=== PATIENT | male | born 1990 | race American Indian/Alaskan Native ===

== ENCOUNTER 2021-09-10 19:58 | Observation (INO) | payer SELFPAY ==
--- NOTE | 2021-09-10 21:31 | Emergency Department Report ---
ED General Adult HPI - General Chief complaint: Overdose Stated complaint: OVERDOSE Time Seen by Provider: 09/10/21 21:02 Source: patient, EMS Mode of arrival: Stretcher Limitations: No Limitations - History of Present Illness Initial comments: patient presents 2/2 being found unresponsive @ a alliance party in an apartment. Per EMS, patient got 2 doses of narcan, after which he woke up. Patient states he is unsure what he ingested at the alliance party. Denies SÁNCHEZ, dizziness, numbness, weakness, CP, SOB, palpitations, abd pain, back pain, pain in his extremities. - Related Data Allergies Allergy/AdvReac Type Severity Reaction Status Date / Time No Known Allergies Allergy Unverified 09/10/21 20:16 ED Review of Systems ROS: Stated complaint: OVERDOSE Other details as noted in HPI Comment: All other systems reviewed and negative Constitutional: denies: chills, fever ED Past Medical Hx - Past Medical History Previous Medical History?: No - Surgical History Past Surgical History?: No - Social History Smoking Status: Never Smoker Substance Use Type: None ED Physical Exam - General Limitations: No Limitations General appearance: alert, in no apparent distress - Head Head exam: Present: normocephalic, other (superifical abrasions in occiput) - Eye Eye exam: Present: PERRL, EOMI - ENT ENT exam: Present: mucous membranes moist, other (airway patent) - Neck Neck exam: Present: other (painless full ROM; non tender to palpation; unable to clear by NEXUS criteria 2/2 AMS) - Respiratory Respiratory exam: Present: other (good air entry, nml I:E, CTAB, no use of MURRAY) - Cardiovascular Cardiovascular Exam: Present: regular rate. Absent: rubs, gallop - GI/Abdominal GI/Abdominal exam: Present: soft, normal bowel sounds. Absent: distended, tenderness, guarding, rebound - Extremities Exam Extremities exam: Present: other (painless full ROM without defomrity, edema, ecchymosis or tenderness in all extremities; pelvis stable and non tender) - Back Exam Back exam: Present: other (no step offs). Absent: vertebral tenderness - Neurological Exam Neurological exam: Present: alert, oriented X3, CN II-XII intact, other (GCS 15/15 ([id number])). Absent: motor sensory deficit - Skin Skin exam: Present: other (see head) ED Course Vital Signs 09/10/21 09/10/21 20:11 21:17 Temperature 98 F Pulse Rate 84 Respiratory 18 Rate Blood Pressure 131/89 O2 Sat by Pulse 100 100 Oximetry ED Medical Decision Making - Lab Data Result diagrams: 09/10/21 21:55 09/10/21 21:55 Laboratory Tests 09/10/21 09/10/21 09/10/21 21:29 21:29 21:55 WBC 7.5 RBC 4.74 Hgb 14.5 Hct 44.3 MCV 94 MCH 31 MCHC 33 RDW 13.4 Plt Count 217 Lymph % (Auto) 26.7 [place] % (Auto) 9.6 H Eos % (Auto) 0.4 Baso % (Auto) 0.4 Lymph # (Auto) 2.0 [place] # (Auto) 0.7 Eos # (Auto) 0.0 Baso # (Auto) 0.0 Seg Neutrophils % 62.9 Seg Neutrophils # 4.8 Sodium Potassium Chloride Carbon Dioxide Anion Gap BUN Creatinine Estimated GFR BUN/Creatinine Ratio Glucose Calcium Total Bilirubin AST ALT Alkaline Phosphatase Troponin T Total Protein Albumin Albumin/Globulin Ratio Urine Color Straw Urine Turbidity Clear Urine pH 6.0 Ur Specific [place] 1.004 Urine Protein 30 mg/dl Urine Glucose (UA) Neg Urine Ketones Neg Urine Blood Sm Urine Nitrite Neg Urine Bilirubin Neg Urine Urobilinogen < 2.0 Ur Leukocyte Esterase Neg Urine WBC (Auto) 1.0 Urine RBC (Auto) < 1.0 Urine Bacteria (Auto) 1+ Salicylates Urine Opiates Screen Negative Urine Methadone Screen Negative Acetaminophen Ur Barbiturates Screen Negative Ur Phencyclidine Scrn Negative Ur Amphetamines Screen Negative U Benzodiazepines Scrn Negative Urine Cocaine Screen Negative U Marijuana (THC) Screen Positive Drugs of Abuse Note Disclamer Plasma/Serum Alcohol 09/10/21 09/10/21 09/10/21 21:55 21:55 21:55 WBC RBC Hgb Hct MCV MCH MCHC RDW Plt Count Lymph % (Auto) [place] % (Auto) Eos % (Auto) Baso % (Auto) Lymph # (Auto) [place] # (Auto) Eos # (Auto) Baso # (Auto) Seg Neutrophils % Seg Neutrophils # Sodium 138 Potassium 3.9 Chloride 99.0 Carbon Dioxide 22 Anion Gap 21 BUN 13 Creatinine 1.0 Estimated GFR > 60 BUN/Creatinine Ratio 13 Glucose 80 Calcium 8.9 Total Bilirubin 0.40 AST 85 H ALT 70 H Alkaline Phosphatase 49 Troponin T < 0.010 Total Protein 7.4 Albumin 4.8 Albumin/Globulin Ratio 1.8 Urine Color Urine Turbidity Urine pH Ur Specific [place] Urine Protein Urine Glucose (UA) Urine Ketones Urine Blood Urine Nitrite Urine Bilirubin Urine Urobilinogen Ur Leukocyte Esterase Urine WBC (Auto) Urine RBC (Auto) Urine Bacteria (Auto) Salicylates < 0.3 L Urine Opiates Screen Urine Methadone Screen Acetaminophen 5.0 L Ur Barbiturates Screen Ur Phencyclidine Scrn Ur Amphetamines Screen U Benzodiazepines Scrn Urine Cocaine Screen U Marijuana (THC) Screen Drugs of Abuse Note Plasma/Serum Alcohol 09/10/21 21:55 WBC RBC Hgb Hct MCV MCH MCHC RDW Plt Count Lymph % (Auto) [place] % (Auto) Eos % (Auto) Baso % (Auto) Lymph # (Auto) [place] # (Auto) Eos # (Auto) Baso # (Auto) Seg Neutrophils % Seg Neutrophils # Sodium Potassium Chloride Carbon Dioxide Anion Gap BUN Creatinine Estimated GFR BUN/Creatinine Ratio Glucose Calcium Total Bilirubin AST ALT Alkaline Phosphatase Troponin T Total Protein Albumin Albumin/Globulin Ratio Urine Color Urine Turbidity Urine pH Ur Specific [place] Urine Protein Urine Glucose (UA) Urine Ketones Urine Blood Urine Nitrite Urine Bilirubin Urine Urobilinogen Ur Leukocyte Esterase Urine WBC (Auto) Urine RBC (Auto) Urine Bacteria (Auto) Salicylates Urine Opiates Screen Urine Methadone Screen Acetaminophen Ur Barbiturates Screen Ur Phencyclidine Scrn Ur Amphetamines Screen U Benzodiazepines Scrn Urine Cocaine Screen U Marijuana (THC) Screen Drugs of Abuse Note Plasma/Serum Alcohol 0.05 EKG: HR 66, SR, nml intervals, minimal (< 1 mm) J point elevations in II, III, aVF without reciprocal ST depressions; likely benign early repolarization; patient without chest pain - Medical Decision Making poison control consulted. they recommend repeating CMP 4 hours after initial one, fluid hydration and obs x 12 hours minimum. They will follow Critical care attestation.: If time is entered above; I have spent that time in minutes in the direct care of this critically ill patient, excluding procedure time. ED Disposition Clinical Impression: Accidental drug overdose Qualifiers: Encounter type: initial encounter Qualified Code(s): T50.901A - Poisoning by unspecified drugs, medicaments and biological substances, accidental (unintentional), initial encounter Disposition: ADMITTED INPATIENT Is pt being admited?: Yes Does the pt Need Aspirin: No Condition: Stable Time of Disposition: 23:55 (Patient admitted to Dr. Gayle. Sign out was gvien by me to the admitting physician)
--- NOTE | 2021-09-10 21:47 | XRay Report ---
XR chest 1V ap INDICATION / CLINICAL INFORMATION: Loss of consciousness. COMPARISON: None available. FINDINGS: SUPPORT DEVICES: None. HEART /PULMONARY VASCULATURE: No significant abnormality. LUNGS / PLEURA: No significant pulmonary or pleural abnormality. No pneumothorax. IMPRESSION: 1. No acute findings. Signer Name: Alo Ortiz MD Signed: 09/10/2021 9:43 PM Workstation Name: [id number]
[2021-09-10 21:50] LABS: Amphetamine Screen,Urine Negative; Benzodiazepines Screen,Urine Negative; Cocaine Screen,Urine Negative; Methadone Screen,Urine Negative; Opiate Screen,Urine Negative
--- NOTE | 2021-09-10 21:58 | Cat Scan Report ---
CT head/brain wo con, CT cervical spine wo con INDICATION: loss of consciousness. TECHNIQUE: CT head and cervical spine without contrast. All CT scans at this location are performed u sing CT dose reduction for ALARA by means of automated exposure control. COMPARISON: None. FINDINGS: HEAD: BRAIN PARENCHYMA: No acute intracranial hemorrhage. No evidence of recent infarct. No mass effect or midline shift. VENTRICULAR SYSTEM/EXTRA-AXIAL SPACES: Ventricles are normal for age. No extra-axial fluid collection . ORBITS: Normal as visualized. SKELETAL SYSTEM/SOFT TISSUES: Normal bones and soft tissues. PARANASAL SINUSES/MASTOID AIR CELLS: No significant abnormality. CERVICAL: Alignment: Normal. No acute subluxation. Geographic Bone Lesion: None present. Fracture: No acute fracture. Degenerative Changes: Mild multilevel degenerative changes are present. Epidural Hematoma: Not present. Prevertebral / Paraspinal Soft Tissues: Unremarkable. IMPRESSION: 1. No acute intracranial abnormality. 2. No acute abnormality of the cervical spine. Signer Name: Alo Ortiz MD Signed: 09/10/2021 9:54 PM Workstation Name: [id number]
[2021-09-10 22:02] LABS: Bacteria,Urine 1+ /HPF (Negative); Bilirubin,Urine NEG (Negative); Blood,Urine SM (Negative); Color,Urine Straw (Yellow); RBC,Urine < 1.0 /HPF (0.0-6.0); Urobilinogen,Urine < 2.0 mg/dL (<2.0)
[2021-09-10 22:03] LABS: Cannabinoid Screen,Urine Positive
[2021-09-10] MEDS: TETANUS,DIPH,PERTUSS(ACELL) VACCINE 0.5 ML SYRINGE IM ONE (22:11)
[2021-09-10 22:24] LABS: Basophils % (Auto) 0.4 % (0.0-1.8); Eosinophils % (Auto) 0.4 % (0.0-4.3); Hematocrit 44.3 % (35.5-45.6); Hemoglobin 14.5 gm/dl (11.8-15.2); Lymphocytes % (Auto) 26.7 % (13.4-35.0); Mean Corpuscular HGB Conc 33 % (32-34); Mean Corpuscular Volume 94 fl (84-94); Monocytes # (Auto) 0.7 K/mm3 (0.0-0.8); Monocytes % (Auto) 9.6 % (0.0-7.3); Platelet Count 217 K/mm3 (140-440); Red Blood Count 4.74 M/mm3 (3.65-5.03); Red Cell Distribution Width 13.4 % (13.2-15.2)
[2021-09-10 22:49] LABS: Alanine Aminotransferase 70 units/L (7-56); Albumin 4.8 g/dL (3.9-5); BUN/Creatinine Ratio 13; Blood Urea Nitrogen 13 mg/dL (9-20); Calcium 8.9 mg/dL (8.4-10.2); Hemolysis Index 9
[2021-09-11] MEDS: SODIUM CHLORIDE 0.9% 1000 ML 1,000 ML IV ONE ×2 (00:37→07:12)
[2021-09-11 00:42] LABS: Alanine Aminotransferase 64 units/L (7-56); Albumin 4.7 g/dL (3.9-5); BUN/Creatinine Ratio 14; Blood Urea Nitrogen 14 mg/dL (9-20); Calcium 8.8 mg/dL (8.4-10.2); Hemolysis Index 4
[2021-09-11] MEDS ORDERED: ALBUTEROL 2.5 MG/3 ML NEBU IH PRN (02:06)
--- NOTE | 2021-09-11 02:13 | History and Physical Report ---
History of Present Illness Date of examination: 09/11/21 Date of admission: 09/11/21 Chief complaint: Drug overdose Unresponsiveness History of present illness: 31 years old male with history of marijuana abuse was brought to the hospital because of patient being found unresponsive @ a green party in an apartment. Per EMS, patient got 2 doses of narcan, after which he woke up. Patient states he is unsure what he ingested at the green party. Denies SÁNCHEZ, dizziness, numbness, weakness, CP, SOB, palpitations, abd pain, back pain, pain in his extremities. In the emergency room patient urine drug screen is positive for marijuana. We are going to admit the patient, poison control consulted. they recommend repeating CMP 4 hours after initial one, fluid hydration and obs x 12 hours minimum. Past History Past Medical History: No medical history Past Surgical History: No surgical history Social history: other (Marijuana abuse) Family history: no significant family history Medications and Allergies Allergies Allergy/AdvReac Type Severity Reaction Status Date / Time No Known Allergies Allergy Unverified 09/10/21 20:16 Review of Systems All systems: negative Constitutional: fatigue, other (Unresponsiveness) Exam - Constitutional Vitals: Temp Pulse Resp BP Pulse Ox 98 F 84 18 131/89 100 09/10/21 20:11 09/10/21 20:11 09/10/21 20:11 09/10/21 20:11 09/10/21 21:17 General appearance: Present: no acute distress, well-nourished - EENT Eyes: Present: PERRL ENT: hearing intact, clear oral mucosa - Neck Neck: Present: supple, normal ROM - Respiratory Respiratory effort: normal Respiratory: bilateral: CTA - Cardiovascular Heart Sounds: Present: S1 & S2. Absent: rub, click - Extremities Extremities: pulses symmetrical, No edema Peripheral Pulses: within normal limits - Abdominal General gastrointestinal: Present: soft, non-tender, non-distended, normal bowel sounds Male genitourinary: Present: normal - Integumentary Integumentary: Present: clear, warm, dry - Musculoskeletal Musculoskeletal: gait normal, strength equal bilaterally - Psychiatric Psychiatric: appropriate mood/affect, intact judgment & insight - Neurologic Neurologic: CNII-XII intact, moves all extremities HEART Score - HEART Score Troponin: Troponin T < 0.010 ng/mL (0.00-0.029) 09/10/21 21:55 Results - Labs CBC & Chem 7: 09/10/21 21:55 09/11/21 00:09 Labs: Laboratory Last Values WBC 7.5 K/mm3 (4.5-11.0) 09/10/21 21:55 RBC 4.74 M/mm3 (3.65-5.03) 09/10/21 21:55 Hgb 14.5 gm/dl (11.8-15.2) 09/10/21 21:55 Hct 44.3 % (35.5-45.6) 09/10/21 21:55 MCV 94 fl (84-94) 09/10/21 21:55 MCH 31 pg (28-32) 09/10/21 21:55 MCHC 33 % (32-34) 09/10/21 21:55 RDW 13.4 % (13.2-15.2) 09/10/21 21:55 Plt Count 217 K/mm3 (140-440) 09/10/21 21:55 Lymph % (Auto) 26.7 % (13.4-35.0) 09/10/21 21:55 [place] % (Auto) 9.6 % (0.0-7.3) H 09/10/21 21:55 Eos % (Auto) 0.4 % (0.0-4.3) 09/10/21 21:55 Baso % (Auto) 0.4 % (0.0-1.8) 09/10/21 21:55 Lymph # (Auto) 2.0 K/mm3 (1.2-5.4) 09/10/21 21:55 [place] # (Auto) 0.7 K/mm3 (0.0-0.8) 09/10/21 21:55 Eos # (Auto) 0.0 K/mm3 (0.0-0.4) 09/10/21 21:55 Baso # (Auto) 0.0 K/mm3 (0.0-0.1) 09/10/21 21:55 Seg Neutrophils % 62.9 % (40.0-70.0) 09/10/21 21:55 Seg Neutrophils # 4.8 K/mm3 (1.8-7.7) 09/10/21 21:55 Sodium 137 mmol/L (137-145) 09/11/21 00:09 Potassium 4.4 mmol/L (3.6-5.0) 09/11/21 00:09 Chloride 99.1 mmol/L (98-107) 09/11/21 00:09 Carbon Dioxide 23 mmol/L (22-30) 09/11/21 00:09 Anion Gap 19 mmol/L 09/11/21 00:09 BUN 14 mg/dL (9-20) 09/11/21 00:09 Creatinine 1.0 mg/dL (0.8-1.3) 09/11/21 00:09 Estimated GFR > 60 ml/min 09/11/21 00:09 BUN/Creatinine Ratio 14 % 09/11/21 00:09 Glucose 81 mg/dL (75-100) 09/11/21 00:09 Calcium 8.8 mg/dL (8.4-10.2) 09/11/21 00:09 Total Bilirubin 0.30 mg/dL (0.1-1.2) 09/11/21 00:09 AST 75 units/L (5-40) H 09/11/21 00:09 ALT 64 units/L (7-56) H 09/11/21 00:09 Alkaline Phosphatase 48 units/L (35-129) 09/11/21 00:09 Troponin T < 0.010 ng/mL (0.00-0.029) 09/10/21 21:55 Total Protein 7.3 g/dL (6.3-8.2) 09/11/21 00:09 Albumin 4.7 g/dL (3.9-5) 09/11/21 00:09 Albumin/Globulin Ratio 1.8 % 09/11/21 00:09 Urine Color Straw (Yellow) 09/10/21 21:29 Urine Turbidity Clear (Clear) 09/10/21 21: Urine pH 6.0 (5.0-7.0) 09/10/21 21:29 Ur Specific [place] 1.004 (1.003-1.030) 09/10/21 21: Urine Protein 30 mg/dl mg/dL (Negative) 09/10/21 21:29 Urine Glucose (UA) Neg mg/dL (Negative) 09/10/21 21: Urine Ketones Neg mg/dL (Negative) 09/10/21 21:29 Urine Blood Sm (Negative) 09/10/21 21:29 Urine Nitrite Neg (Negative) 09/10/21 21: Urine Bilirubin Neg (Negative) 09/10/21 21: Urine Urobilinogen < 2.0 mg/dL (<2.0) 09/10/21 21:29 Ur Leukocyte Esterase Neg (Negative) 09/10/21 21: Urine WBC (Auto) 1.0 /HPF (0.0-6.0) 09/10/21 21: Urine RBC (Auto) < 1.0 /HPF (0.0-6.0) 09/10/21 21: Urine Bacteria (Auto) 1+ /HPF (Negative) 09/10/21: Salicylates < 0.3 mg/dL (2.8-20.0) L 09/10/21 21:55 Urine Opiates Screen Negative 09/10/21 21: Urine Methadone Screen Negative 09/10/21: Acetaminophen 5.0 ug/mL (10.0-30.0) L 09/10/21 21:55 Ur Barbiturates Screen Negative 09/10/21 21: Ur Phencyclidine Scrn Negative 09/10/21 21:29 Ur Amphetamines Screen Negative 09/10/21 21: U Benzodiazepines Scrn Negative 09/10/21 21: Urine Cocaine Screen Negative 09/10/21 21: U Marijuana (THC) Screen Positive 09/10/21 21: Drugs of Abuse Note Disclamer 09/10/21: Plasma/Serum Alcohol 0.05 % (0-0.07) 09/10/21 21:55 - Imaging and Cardiology Chest x-ray: report reviewed CT Scan - head: report reviewed Assessment and Plan VTE prophylaxis?: Mechanical Plan of care discussed with patient/family: Yes - Patient Problems (1) Drug overdose Current Visit: Yes Status: Acute Plan to address problem: Admit the patient to the medical floor telemetry. n.p.o. D5 half-normal saline at the rate of 100 cc/h. Oxygen via nasal cannula 3 L/min. DuoNeb by nebulizer every 4 hours. Albuterol via nebulizer every 4 hours as needed. We will recheck the CMP and we will monitor the patient for total 12 hours. If needed reconsult psych for evaluation (2) Marijuana abuse Current Visit: Yes Status: Acute Plan to address problem: We counseled the patient regarding quit taking marijuana (3) DVT prophylaxis Current Visit: Yes Status: Acute Plan to address problem: SCD for DVT prophylaxis. Pepcid 20 mg IV every 12 hours for GI prophylaxis. Patient is a full code
[2021-09-11] MEDS ORDERED: HYDROmorphone 1 MG/1 ML INJ IV PRN (02:30)
[2021-09-11] MEDS ORDERED: ACETAMINOPHEN 325 MG TAB PO PRN (02:30)
[2021-09-11] MEDS ORDERED: MORPHINE 2 MG/1 ML INJ IV PRN (02:30)
[2021-09-11] MEDS ORDERED: ONDANSETRON 4 MG/2 ML INJ IV PRN (02:30)
[2021-09-11] MEDS ORDERED: D5W/0.45% NACL 1,000 ML IV SCH (03:00)
[2021-09-11] MEDS: TETANUS,DIPH,PERTUSS(ACELL) VACCINE 0.5 ML SYRINGE IM ONE (07:12)
[2021-09-11] MEDS ORDERED: IPRATROPIUM/ALBUTEROL SULFATE 3 ML AMPUL.NEB IH SCH (08:00)
--- NOTE | 2021-09-11 08:22 | Discharge Summary ---
Providers - Providers Date of Admission: 09/11/21 02:08 Attending physician: KIMANI LIU MD Primary care physician: NOEMI CHILDERS Hospitalization Reason for admission: overdose Condition: Stable Hospital course: History of present illness: 31 years old male with history of marijuana abuse was brought to the hospital because of patient being found unresponsive @ a alliance party in an apartment. Per EMS, patient got 2 doses of narcan, after which he woke up. Patient states he is unsure what he ingested at the alliance party. Denies SÁNCHEZ, dizziness, numbness, weakness, CP, SOB, palpitations, abd pain, back pain, pain in his extremities. In the emergency room patient urine drug screen is positive for marijuana. We are going to admit the patient, poison control consulted. they recommend repeating CMP 4 hours after initial one, fluid hydration and obs x 12 hours minimum. Hospital Course: 09/11: Admitted for THC and fentanyl overdose. Patient has now returned to his baseline. Poison control recommendations noted, reviewed lab did not note any significant abnormalities. Administered substance abuse counseling. Will discharge home today Assessment and Plan: #Drug overdose Current Visit: Yes Status: Acute Plan to address problem: Admit the patient to the medical floor telemetry. n.p.o. D5 half-normal saline at the rate of 100 cc/h. Oxygen via nasal cannula 3 L/min. DuoNeb by nebulizer every 4 hours. Albuterol via nebulizer every 4 hours as needed. We will recheck the CMP and we will monitor the patient for total 12 hours. If needed reconsult psych for evaluation #Marijuana abuse Current Visit: Yes Status: Acute Plan to address problem: We counseled the patient regarding quit taking marijuana, +15 minutes behavioral health counseling #Advance care planning Disease education conducted, care plan discussed, diagnoses discussed, prognosis discussed, patient is full code, patient acknowledges understanding and agree with care plan, +30 minutes. #DVT prophylaxis Current Visit: Yes Status: Acute Plan to address problem: SCD for DVT prophylaxis. Pepcid 20 mg IV every 12 hours for GI prophylaxis. Patient is a full code Disposition: 01 HOME / SELF CARE / HOMELESS Final Discharge Diagnosis (Prints w/discharge instructions): acute metabolic encephalopathy, drug overdose Time spent for discharge: 25 Core Measure Documentation - Palliative Care Palliative Care/ Comfort Measures: Not Applicable - Core Measures Any of the following diagnoses?: none Exam - Physical Exam Narrative exam: General appearance: Present: no acute distress, well-nourished - EENT Eyes: Present: PERRL ENT: hearing intact, clear oral mucosa - Neck Neck: Present: supple, normal ROM - Respiratory Respiratory effort: normal Respiratory: bilateral: CTA - Cardiovascular Heart Sounds: Present: S1 & S2. Absent: rub, click - Extremities Extremities: pulses symmetrical, No edema Peripheral Pulses: within normal limits - Abdominal General gastrointestinal: Present: soft, non-tender, non-distended, normal bowel sounds Male genitourinary: Present: normal - Integumentary Integumentary: Present: clear, warm, dry - Musculoskeletal Musculoskeletal: gait normal, strength equal bilaterally - Psychiatric Psychiatric: appropriate mood/affect, intact judgment & insight - Neurologic Neurologic: CNII-XII intact, moves all extremities - Constitutional Vitals: Temp Pulse Resp BP Pulse Ox 98 F 78 18 131/81 100 09/10/21 20:11 09/11/21 04:04 09/11/21 04:04 09/11/21 04:04 09/11/21 04:04 Plan Follow up with: NOEMI CHILDERS MD [Primary Care Provider] - 7 Days
[2021-09-11 09:56] VITALS: BP 108/63
[2021-09-11] MEDS ORDERED: FAMOTIDINE 20 MG/2 ML INJ IV SCH (10:00)
--- NOTE | 2021-09-11 10:25 | Electrocardiograph Report ---
[facility] Test Date: 2021-09-10 Test Time: 20:51:36 Pat Name: ELISHA KAPLAN Department: Room: A467 Gender: M Shipping Clerk/Admin: NURSE : 1990 Requested By: DUSTIN JIMENEZ Order Number: [id number] Reading MD: Neno Hearn Measurements Intervals [place] Rate: 68 P: 74 PA: 153 QRS: 76 QRSD: 82 T: 60 QT: 368 QTc: 391 Interpretive Statements Sinus rhythm ST elev, probable normal early repol pattern No previous ECG available for comparison Electronically Signed On 09-11-2021 10:25:23 EDT by Neno Hearn
== END 2021-09-11 12:00 | disposition home or self-care (01) ==
LOC: ED 19:58 → 4A 09-11 02:08 → INTOOBSV 09-11 02:08 → 4A 09-11 08:32
PROVIDERS: ADMIT Hospitalist; ATTEND Internal Medicine
DX: T40.711A Poisoning by cannabis, accidental (unintentional), initial encounter (principal); G93.41 Metabolic encephalopathy; F12.10 Cannabis abuse, uncomplicated; Z23 Encounter for immunization; Z71.85 Encounter for immunization safety counseling; Z79.899 Other long term (current) drug therapy
CPT/HCPCS: 36415; 70450; 71045; 72125; 80053; 80307; 81001; 84484; 85025; 90471; 90715; 93005; 96361; 96374; 99285; G0378; J3490; J7030; 80320; Q0162; G0480